=== PATIENT | female | born 1980 | race Hispanic/Latino ===

== ENCOUNTER 2018-09-29 03:39 | Emergency (ER) | payer BC ==
[2018-09-29 04:00] LABS: APPEARANCE,URINE Cloudy (CLEAR); BILIRUBIN,URINE Negative (NEGATIVE); COLOR,URINE Yellow (YELLOW); GLUCOSE, URINE (UA) >=1000 mg/dL (NEGATIVE); KETONES,URINE 15 mg/dL (NEGATIVE); LEUKOCYTE ESTERASE ,URINE Moderate (NEGATIVE); NITRATE,URINE Positive (NEGATIVE); OCCULT BLOOD,URINE Large (NEGATIVE); PH,URINE 6.5 (5.0-8.0); PROTEIN,URINE POS 2+ (NEGATIVE)
[2018-09-29 04:07] LABS: HCG,QUAL RESULT NEGATIVE (NEGATIVE)
[2018-09-29] MEDS ORDERED: CEPHALEXIN 500 MG CAPSULE ONE (04:16)
[2018-09-29] MEDS ORDERED: PHENAZOPYRIDINE HCL 200 MG TABLET ONE (04:17)
[2018-09-29] MEDS ORDERED: DICYCLOMINE HCL 20 MG TAB ONE (04:17)
[2018-09-29] MEDS ORDERED: ONDANSETRON ODT 4 MG TAB ONE (04:21)
[2018-09-29 04:22] LABS: AMORPHOUS SEDIMENT,UR Rare /LPF (None Seen); BACTERIA,URINE Moderate /HPF (None Seen); RBC,URINE 51-100 /HPF (0-1); SQUAMOUS EPITHELIAL CELL,UR Few /HPF (0-2); WBC,URINE 26-50 /HPF (0-1); YEAST,URINE BUDDING Rare /HPF (None Seen)
== END 2018-09-29 04:52 | disposition home or self-care (01) ==
LOC: EDH 03:39
DX: N39.0 Urinary tract infection, site not specified (principal); R11.0 Nausea; I10 Essential (primary) hypertension; E11.9 Type 2 diabetes mellitus without complications; E78.5 Hyperlipidemia, unspecified
CPT/HCPCS: 81001; 81025; 87077; 87088; 87186

== ENCOUNTER 2020-02-15 18:38 | Emergency (ER) | payer BC ==
[2020-02-15 19:07] LABS: APPEARANCE,URINE Cloudy (CLEAR); BILIRUBIN,URINE Negative (NEGATIVE); COLOR,URINE Yellow (YELLOW); GLUCOSE, URINE (UA) >=1000 mg/dL (NEGATIVE); KETONES,URINE Trace mg/dL (NEGATIVE); LEUKOCYTE ESTERASE ,URINE Small (NEGATIVE); NITRATE,URINE Negative (NEGATIVE); OCCULT BLOOD,URINE Trace (NEGATIVE); PROTEIN,URINE 300 mg/dL (NEGATIVE)
[2020-02-15 19:10] LABS: HCG,QUAL RESULT NEGATIVE (NEGATIVE)
[2020-02-15] MEDS ORDERED: ONDANSETRON HCL 4 MG/2 ML VIAL ONE (19:15)
[2020-02-15 19:18] LABS: BASOPHILS % (AUTO) 0.2 % (0.0-5.0); EOSINOPHILS % (AUTO) 0.8 % (0.0-8.0); HEMATOCRIT 38.5 % (36-48); LYMPHOCYTES % (AUTO) 29.7 % (21.0-51.0); MEAN CORPUSCULAR HEMOGLOBIN 27.6 pg (27.0-33.0); MEAN CORPUSCULAR HGB CONC 34.8 g/dL (32.0-36.0); MEAN CORPUSCULAR VOLUME 79.4 fL (79-99); MONOCYTES % (AUTO) 6.7 % (3.0-13.0); NEUTROPHILS % (AUTO) 62.3 % (40.0-77.0); PLATELET COUNT (AUTO) 246 K/uL (130-400); RED BLOOD CELL COUNT(AUTO) 4.85 MIL/uL (4.00-5.50); RED CELL DISTRIBUTION WIDTH 11.2 % (11.0-15.5); WHITE BLOOD COUNT (AUTO) 9.5 K/uL (4.8-10.8)
[2020-02-15 19:36] LABS: CREATININE 0.9 mg/dL (0.5-1.5); POTASSIUM 4.1 mmol/L (3.5-5.1)
[2020-02-15 19:41] LABS: BILIRUBIN,TOTAL 0.1 mg/dL (0.2-1.0); TOTAL PROTEIN, SERUM 7.3 g/dL (6.0-8.3)
[2020-02-15 19:48] LABS: BACTERIA,URINE Few /HPF (None Seen); SQUAMOUS EPITHELIAL CELL,UR Moderate /HPF (0-2)
== END 2020-02-15 21:51 | disposition home or self-care (01) ==
LOC: EDH 18:38
DX: E11.65 Type 2 diabetes mellitus with hyperglycemia (principal); R11.2 Nausea with vomiting, unspecified; I10 Essential (primary) hypertension; E78.5 Hyperlipidemia, unspecified; Z72.0 Tobacco use
CPT/HCPCS: 36415; 80053; 81001; 81025; 82948; 85025; 87088; 96361; 96374; 99283; J2405

== ENCOUNTER 2024-02-07 20:47 | Emergency (ER) | payer BC ==
[~2024-02-07] VITALS: Ht 160 cm; Wt 93.9 kg
[~2024-02-07 20:47] MED LIST: AEC81 PO; ALBU18HF7 IH; DAPA10TA PO; FENO145T26 PO; FURO80TA3 PO; INSU100I47 SQ; INSU100V12 SQ; LATA2.5D14 OU; LINA72CA PO; LISI20TA24 PO; METO-408 PO; PANT40TA54 PO; SODI650T PO
[2024-02-07 21:43] LABS: ADD UA MICROSCOPIC YES; APPEARANCE,URINE CLEAR (CLEAR); BILIRUBIN,URINE NEGATIVE (NEGATIVE); COLOR,URINE COLORLESS (YELLOW); GLUCOSE, URINE (UA) >=1000 mg/dL (NEGATIVE); KETONES,URINE NEGATIVE (NEGATIVE); LEUKOCYTE ESTERASE ,URINE NEGATIVE Leu/uL (NEGATIVE); NITRATE,URINE NEGATIVE (NEGATIVE); OCCULT BLOOD,URINE SMALL (NEGATIVE); PH,URINE 6.5 (5.0-8.0); PROTEIN,URINE 600 mg/dL (NEGATIVE); UROBILINOGEN,URINE 0.2 mg/dL (0.2-1.0)
[2024-02-07 21:47] LABS: BACTERIA,URINE MOD /HPF (None Seen); MUCUS,URINE RARE LPF (None Seen); SQUAMOUS EPITHELIAL CELL,UR RARE /HPF (0-2)
[2024-02-07 22:09] LABS: BASOPHILS # (AUTO) 0.04 K/uL (0.00-0.20); BASOPHILS % (AUTO) 0.5 % (0.0-5.0); EOSINOPHILS % (AUTO) 1.4 % (0.0-8.0); HEMATOCRIT 29.2 % (36-48); IMMATURE GRANULOCYTE ABSOLUTE 0.03 K/uL (0-1); LYMPHOCYTES % (AUTO) 27.3 % (21.0-51.0); MEAN CORPUSCULAR HEMOGLOBIN 24.9 pg (27.0-33.0); MEAN CORPUSCULAR HGB CONC 32.5 g/dL (32.0-36.0); MEAN CORPUSCULAR VOLUME 76.4 fL (79-99); MONOCYTES # (AUTO) 0.5 K/uL (0.1-1.0); MONOCYTES % (AUTO) 6.2 % (3.0-13.0); NEUTROPHILS # (AUTO) 4.8 K/uL (1.8-7.7); NEUTROPHILS % (AUTO) 64.2 % (40.0-77.0); PLATELET COUNT (AUTO) 456 K/uL (130-400); RED BLOOD CELL COUNT(AUTO) 3.82 MIL/uL (4.00-5.50); RED CELL DISTRIBUTION WIDTH 13.1 % (11.0-15.5); WHITE BLOOD COUNT (AUTO) 7.4 K/uL (4.8-10.8)
[2024-02-07 22:18] LABS: CREATININE 2.5 mg/dL (0.5-1.0); POTASSIUM 4.2 mmol/L (3.5-5.1)
[2024-02-07 22:22] LABS: BILIRUBIN,TOTAL 0.1 mg/dL (0.2-1.0); TOTAL PROTEIN, SERUM 6.2 g/dL (6.0-8.3)
[2024-02-07] MEDS: ONDANSETRON 4MG INJ IVP ONE (23:21)
[2024-02-07] MEDS: MORPHINE 2 MG SYG IVP ONE (23:25)
[2024-02-08] MEDS ORDERED: HYDRALAZINE 20MG/ML VIAL IV STA (00:58)
[2024-02-08] MEDS: MORPHINE 2 MG SYG IVP STA (01:19)
[2024-02-08 01:33] VITALS: BP 143/72; PULSE 75; RESP 18; O2SAT 98
== END 2024-02-08 01:34 | disposition home or self-care (01) ==
LOC: EDH 20:47
DX: R10.30 Lower abdominal pain, unspecified (principal); R10.11 Right upper quadrant pain; E78.00 Pure hypercholesterolemia, unspecified; I12.0 Hypertensive chronic kidney disease with stage 5 chronic kidney disease or end stage renal disease; E11.22 Type 2 diabetes mellitus with diabetic chronic kidney disease; N18.6 End stage renal disease; Z94.0 Kidney transplant status; Z79.82 Long term (current) use of aspirin; Z79.84 Long term (current) use of oral hypoglycemic drugs; Z79.899 Other long term (current) drug therapy; Z98.890 Other specified postprocedural states; Z79.4 Long term (current) use of insulin
CPT/HCPCS: 99284; 74176; 96374; 71045; 96375; 84484; 80053; 83690; 85025; 87088; 81001; 81025; 36415; 93005; J2270; J2405; J0360

== ENCOUNTER 2024-07-03 13:03 | Emergency (ER) | payer BC ==
[~2024-07-03] VITALS: Ht 154.9 cm; Wt 93.9 kg
[2024-07-03 13:47] LABS: RAPID GROUP A STREP negative (NEGATIVE)
[2024-07-03 13:50] LABS: SARS-CoV-2, RNA, NAAT NEGATIVE SARS CoV-2 (NEGATIVE)
[2024-07-03 13:57] LABS: INFLUENZA TYPE A Negative For Type A (NEGATIVE); INFLUENZA TYPE B Negative For Type B (NEGATIVE)
[2024-07-03 15:30] VITALS: BP 169/90; PULSE 88; RESP 16; TEMP 98.4; O2SAT 99
[2024-07-03] MEDS ORDERED: BENZ-39 PO (15:36)
[2024-07-03] MEDS ORDERED: ALBUHFA IH (15:36)
[2024-07-03] MEDS ORDERED: LEVO-70 PO (15:36)
== END 2024-07-03 15:56 | disposition home or self-care (01) ==
LOC: EDH 13:03
DX: J20.8 Acute bronchitis due to other specified organisms (principal); Z20.822 Contact with and (suspected) exposure to COVID-19; B96.89 Other specified bacterial agents as the cause of diseases classified elsewhere; R06.00 Dyspnea, unspecified; R05.9 Cough, unspecified; E11.9 Type 2 diabetes mellitus without complications; E78.00 Pure hypercholesterolemia, unspecified; I10 Essential (primary) hypertension; E11.22 Type 2 diabetes mellitus with diabetic chronic kidney disease; I12.0 Hypertensive chronic kidney disease with stage 5 chronic kidney disease or end stage renal disease; N18.6 End stage renal disease; Z79.84 Long term (current) use of oral hypoglycemic drugs; Z79.82 Long term (current) use of aspirin; Z79.4 Long term (current) use of insulin; Z79.899 Other long term (current) drug therapy
CPT/HCPCS: 71045; 84484; 87635; 87804; 87880; 93005

== ENCOUNTER → 2025-03-23 | Outpatient (CLI) | payer BC ==
[~2025-03-23] MED LIST changes: +ALBUHFA IH; +BENZ-39 PO; +LEVO-70 PO
--- NOTE | 2025-03-23 16:54 | HMCIMG ---
US ARTERIAL BILAT LOW EXT DUPL HISTORY: Cramps COMPARISON: None TECHNIQUE: Bilateral lower extremity arterial Doppler ultrasound study was performed. FINDINGS: Normal triphasic arterial waveforms are noted in the common femoral, deep femoral, superficial femoral, popliteal, posterior tibial and dorsalis pedal arteries. On the right, the peak systolic velocity of the common femoral artery is 184 cm/s, the proximal femoral artery is 205 cm/s, the mid femoral artery is 171 cm/s, the distal femoral artery is 160 cm/s, the proximal popliteal artery is 122 cm/s, the distal popliteal artery is 146 cm/s, the anterior tibial artery is 177 cm/s, the posterior tibial artery artery is 169 cm/s,and the dorsalis pedal artery is 141 cm/s. On the left, the peak systolic velocity of the common femoral artery is 190 cm/s, the proximal femoral artery is 186 cm/s, the mid femoral artery is 188 cm/s, the distal femoral artery is 182 cm/s, the proximal popliteal artery is 116 cm/s, the distal popliteal artery is 133 cm/s, the anterior tibial artery is 67 cm/s, the posterior tibial artery artery is 163 cm/s,and the dorsalis pedal artery is 26 cm/s. IMPRESSION: 1. Atherosclerotic disease. 2. Otherwise normal triphasic arterial waveforms noted of the lower extremity artery system.
== END | disposition home or self-care (01) ==
LOC: RAH 13:22
PROVIDERS: ATTEND Internal Medicine
DX: I70.90 Unspecified atherosclerosis (principal); R25.2 Cramp and spasm
CPT/HCPCS: 93925